=== PATIENT | male | born 1960 | race Caucasian/White ===

== ENCOUNTER → 2020-04-17 07:13 | Outpatient (CLI) | payer OTHER, SELFPAY ==
[2020-04-17 07:24] LABS: Microscopic, Urine URINE MICROSCOPIC (MICROSCOPIC)
[2020-04-17 08:29] LABS: Basophils % 0.5 % (0.1-2.0); Eosinophils # 0.1 K/mm3 (0.0-0.4); Eosinophils % 1.4 % (0.1-12.0); Hematocrit 48.7 % (42.0-52.0); Hemoglobin 17.4 g/dL (14.1-18.0); Lymphocytes # 1.4 K/mm3 (0.7-4.5); Lymphocytes % 21.7 % (10-50); Mean Corpuscular HGB Conc 35.8 g/dL (31.8-35.4); Mean Corpuscular Hemoglobin 34.3 pg (27.0-31.2); Mean Corpuscular Volume 95.6 fl (80-94); Mean Platelet Volume 8.2 fl (7.4-10.4); Monocytes # 0.5 K/mm3 (0.1-1.0); Monocytes % 7.5 % (1.7-9.3); Neutrophils # 4.4 K/mm3 (1.8-7.8); Platelet Count 262 K/mm3 (142-424); Red Blood Count 5.09 M/mm3 (4.60-6.20); Red Cell Distribution Width 13.2 % (11.5-17.5); White Blood Count 6.4 K/mm3 (4.8-10.8)
[2020-04-17 08:56] LABS: Appearance,Urine CLEAR (Clear); Blood, Urine Negative (Negative); Color,Urine AMBER (Yellow); Glucose,Urine (UA) Negative (Negative); Ketones,Urine Negative (Negative); Leukocyte Esterase,Urine Negative (Negative); Nitrate,Urine Negative (Negative); Protein,Urine Negative (Negative); Specific Gravity, Urine 1.025 (1.005-1.030)
[2020-04-17 09:01] LABS: Bilirubin,Urine Negative (Negative)
[2020-04-17 09:11] LABS: Bacteria,Urine Trace /lpf; Mucus,Urine Trace /lpf; Squamous Epithelial Cell,Urine Occasional #/hpf (0-5)
[2020-04-17 09:19] LABS: Chloride 102 mmol/L (98-107); Potassium 4.9 mmoL/L (3.5-5.1); Sodium 144 mmol/L (136-145)
[2020-04-17 09:21] LABS: Amylase 67 U/L (30-110); Blood Urea Nitrogen 15 mg/dl (9-20); Estimated Glomerular Filt Rate 86 ml/min (>60); GFR (African American) 105 ML/MIN (>60)
[2020-04-17 09:22] LABS: Alanine Aminotransferase 209 U/L (12-78); Albumin Level 4.5 g/dl (3.5-5.0); Albumin/Globulin Ratio 1.2 (1.1-1.8); Alkaline Phosphatase 71 U/L (38-126); Anion Gap 16.9 mEq/L (5-15); Aspartate Amino Transferase 138 U/L (17-59); Bilirubin,Total 0.9 mg/dl (0.2-1.3); Calcium 10.2 mg/dl (8.4-10.2); Carbon Dioxide 30 mmol/L (22.0-30.0); Globulin 3.8 g/dL (1.3-3.2); Glucose 118 mg/dl (74-100); Lipase 219 U/L (23-300); Total Protein,Serum 8.3 g/dl (6.3-8.2)
[2020-04-17 13:08] LABS: Gamma Glutamyl Transpeptidase 161 U/L (15-73)
[2020-04-17 14:46] LABS: Hemoglobin A1C 5.4 % (4.0-6.0)
[2020-04-18 12:03] LABS: Hep A Ab, IgM Negative (Negative); Hepatitis B Core Antibody IgM Negative (Negative); Hepatitis B Surface Antigen Negative (Negative)
[2020-04-18 16:46] LABS: Hepatitis C Antibody >11.0 s/co ratio (0.0-0.9)
== END ==
LOC: LAB 07:15
PROVIDERS: Visit Provider Family Medicine
DX: R10.9 Unspecified abdominal pain (principal); K85.90 Acute pancreatitis without necrosis or infection, unspecified; B19.20 Unspecified viral hepatitis C without hepatic coma
CPT/HCPCS: 36415; 80053; 80074; 81001; 82150; 82977; 83036; 83690; 85025

== ENCOUNTER → 2020-04-21 16:04 | Outpatient (CLI) | payer OTHER, SELFPAY ==
[2020-04-21 17:47] LABS: Alanine Aminotransferase 153 U/L (12-78); Albumin Level 4.1 g/dl (3.5-5.0); Alkaline Phosphatase 59 U/L (38-126); Aspartate Amino Transferase 86 U/L (17-59); Bilirubin,Direct 0.1 mg/dl (0.0-0.4); Bilirubin,Indirect 0.6 mg/dL (0.0-0.9); Bilirubin,Total 0.7 mg/dl (0.2-1.3); Bilirubin,Unconjugated 0.6 mg/dL (0.0-1.1); Total Protein,Serum 7.4 g/dl (6.3-8.2)
== END ==
LOC: LAB 16:04
PROVIDERS: Visit Provider Family Medicine
DX: B19.20 Unspecified viral hepatitis C without hepatic coma (principal)
CPT/HCPCS: 36415; 80076

== ENCOUNTER 2023-03-14 09:22 | Emergency (ER) | payer OTHER, SELFPAY ==
--- NOTE | 2023-03-14 09:32 | XR_ITS ---
FINAL REPORT CLINICAL HISTORY: PAIN COMPARISON: None FINDINGS: RIGHT KNEE: There is sclerosis in the medullary space of the distal femur consistent with a prior intramedullary gladys, as well as hardware defects in the distal femoral metaphysis. There is no acute fracture or dislocation. The joint spaces are intact. There is a small amount of bony density seen best on the lateral film posterior to the femoral diaphysis that has an appearance most compatible with a small focus of heterotopic bone. IMPRESSION: No acute fracture Changes of sclerosis in the distal femur compatible with IM gladys and orthopedic hardware removal. 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 Reviewed, Interpreted and Dictated by Terry Felder MD Transcribed by Meredith Cho Authenticated and [facility]
[2023-03-14 09:50] VITALS: BP 136/88; PULSE 58; RESP 20; TEMP 36.3; O2SAT 98; BMI 34.8
--- NOTE | 2023-03-14 10:44 | EXP.UTC ---
Discharge Plan Disposition Patient Disposition: Home, Self-Care Condition: Good Prescriptions Prescriptions: New clindamycin HCl 300 mg capsule 300 mg PO Q6H Qty: 40 0RF mupirocin 2 % ointment 1 applic topical TID 10 Days Qty: 22 0RF Rx Instructions: apply to wound on knee No Action gabapentin 400 mg capsule 400 mg PO BID Patient Comments: TAKE 1 CAPSULE BY MOUTH TWICE DAILY NEEDED FOR CHRONIC PAIN SYNDROME SECONDARY TO LOW BACK PAIN amlodipine 5 mg tablet 5 mg PO DAILY lisinopril 40 mg tablet 40 mg PO DAILY Referrals Follow up/Referrals: Provider,Referral, MD [Primary Care Provider] - See instructions Activity Restrictions/Add. Instructions Additional Instructions/Restrictions: *Start antibiotic(s) immediately and be sure to take as ordered for the FULL length of time although you may be feeling better or start to see improvement in the next 24-48 hours *Monitor closely. Outlined redness so that you can monitor easier. Follow up immediately for new or worsening symptoms including but not limited to redness, swelling, streaking from site fever or chills. *Warm compress 15 minutes 3-4 times day *Never squeeze or pop these on your own. Seek immediate medical attention next time this occurs *Monitor Temp. Tylenol every 4 hours as needed and ibuprofen every 6 hours as needed (as long as your primary care doctor has told you that it is ok to take both. For fever, aches, pain. ER if no less that 101 despite Tylenol and ibuprofen ?Follow up with your family doctor/primary care physician in the next 48-72 hours if no improvement Make sure to call for your wound culture results Clinical Impressions Clinical Impression: Cellulitis Qualifiers: Site of cellulitis: unspecified site Qualified Code(s): L03.90 - Cellulitis, unspecified Stand Alone Forms Stand Alone Forms: Work/School Release Instructions Patient Instructions: Cellulitis, Clindamycin Discharge ED Provider: Benita Love [facility] General Stated complaint: Rt leg pain, no accident Mode of Arrival: Ambulatory Source of Information: Patient Limitations: No Limitations Time Seen by Provider: 03/14/23 10:44 Description of Symptoms (Recalled from Triage Doc. by RN): PATIENT STATES THAT ON MONDAY HE GOT SOMETHING (POSSIBLE SPLINTER) IN HIS RIGHT KNEE. ON MONDAY PATIENT STATES HE REMOVED IT, AND SINCE THEN HIS KNEE HAS BECOME SWOLLEN, RED AND WARM TO TOUCH HEENT Symptoms (Recalled from RN notes): No Resp Symptoms (Recalled from RN notes): No Skin Symptoms (Recalled from RN notes): Yes MS Symptoms (Recalled from RN notes): No Functional Status (Recalled from RN notes): WNL History of Present Illness Provider Complaint: Patient states that he works at the [employer] and he is always down on his knees and he got something in his right knee States that he was able to get it out on Monday and thinks it may have been a splinter States that after that he started having a red spot on his knee that is red and swollen and sore Related Data Home Medications Medication Instructions Recorded Confirmed amlodipine 5 mg tablet 5 mg PO DAILY Hypertension 03/14/23 03/14/23 gabapentin 400 mg capsule 400 mg PO BID Pain 03/14/23 03/14/23 lisinopril 40 mg tablet 40 mg PO DAILY Hypertension 03/14/23 03/14/23 Previous Rx's Medication Instructions Recorded clindamycin HCl 300 mg capsule 300 mg PO Q6H #40 caps 03/14/23 mupirocin 2 % topical ointment 1 applic topical TID 10 days #22 03/14/23 grams Allergies Allergy/AdvReac Type Severity Reaction Status Date / Time No Known Allergies Allergy Unverified 07/04/17 14:11 Worker's Comp Is this a Worker's Comp case?: No [facility] Disclaimer: The information contained in this section may have been updated after the patient was seen, as this information can be updated by other users. Social History Smoking Status: Unknown if ever smoked alcohol intake: current
[2023-03-14 11:11] VITALS: BP 136/88; PULSE 58; RESP 20; TEMP 36.3; O2SAT 98
== END 2023-03-14 11:18 | disposition home or self-care (01) ==
PROVIDERS: Emergency Provider Nurse Practitioner
DX: L03.115 Cellulitis of right lower limb (principal); B96.89 Other specified bacterial agents as the cause of diseases classified elsewhere
CPT/HCPCS: 73562; 87070; 87077; 87186; 87205; 99204; 99212; G0463

== ENCOUNTER → 2023-04-22 13:11 | Outpatient (CLI) | payer OTHER, SELFPAY ==
[2023-04-22 14:30] LABS: Basophils % 0.7 % (0.1-2.0); Eosinophils # 0.2 K/mm3 (0.0-0.4); Eosinophils % 5.2 % (0.1-12.0); Hematocrit 47.8 % (42.0-52.0); Hemoglobin 15.4 g/dL (14.1-18.0); Lymphocytes # 1.1 K/mm3 (0.7-4.5); Lymphocytes % 23.3 % (10-50); Mean Corpuscular HGB Conc 32.3 g/dL (31.8-35.4); Mean Corpuscular Hemoglobin 31.7 pg (27.0-31.2); Mean Corpuscular Volume 98.4 fl (80-94); Mean Platelet Volume 8.5 fl (7.4-10.4); Monocytes # 0.3 K/mm3 (0.1-1.0); Monocytes % 5.7 % (1.7-9.3); Neutrophils % 65.1 % (37.0-80.0); Platelet Count 193 K/mm3 (142-424); Red Blood Count 4.86 M/mm3 (4.60-6.20); Red Cell Distribution Width 13.4 % (11.5-17.5); White Blood Count 4.6 K/mm3 (4.8-10.8)
[2023-04-22 14:43] LABS: Chloride 106 mmol/L (98-107); Potassium 4.2 mmoL/L (3.5-5.1); Sodium 138 mmol/L (136-145)
[2023-04-22 14:46] LABS: Alanine Aminotransferase 184 U/L (12-78); Albumin Level 4.1 g/dl (3.5-5.0); Alkaline Phosphatase 76 U/L (38-126); Anion Gap 12.2 mEq/L (5-15); Aspartate Amino Transferase 132 U/L (17-59); Blood Urea Nitrogen 16 mg/dl (9-20); Calcium 8.9 mg/dl (8.4-10.2); Carbon Dioxide 24 mmol/L (22.0-30.0); Estimated Glomerular Filt Rate 76 ml/min (>60); GFR (African American) 92 ML/MIN (>60); Glucose 96 mg/dl (74-100); Total Protein,Serum 8.1 g/dl (6.3-8.2)
[2023-04-27 13:58] LABS: HBsAg Screen Negative (Negative); HCV Ab Reactive (Non Reactive); Hep A Ab, IGM Negative (Negative); Hep B Core Ab, IgM Negative (Negative)
== END ==
LOC: LAB 13:15
PROVIDERS: Visit Provider Nurse Practitioner
DX: B18.2 Chronic viral hepatitis C (principal)
CPT/HCPCS: 36415; 80053; 80074; 85025

== ENCOUNTER → 2023-09-14 14:18 | Outpatient (POV) | payer OTHER, SELFPAY ==
[2023-09-14 15:29] VITALS: BP 145/94; PULSE 60; RESP 20; O2SAT 96; BMI 34.5
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
== END ==
LOC: SC.PAIN 14:19
PROVIDERS: PCP Family Medicine; Visit Provider Nurse Practitioner Family
DX: G89.4 Chronic pain syndrome (principal); M54.50 Low back pain, unspecified; M25.551 Pain in right hip; M54.16 Radiculopathy, lumbar region
CPT/HCPCS: 99202; G0463

== ENCOUNTER 2023-10-12 08:39 | Outpatient (POV) | payer OTHER, SELFPAY ==
--- NOTE | 2023-10-12 08:50 | A.OFFVIS_ITS ---
[facility] Pain Management SOAP Note Subjective:: Patient is a pleasant 63-year-old male who presents today for 1 month follow-up. Today he rates his pain at a 5 out of 10. He denies any new trauma or injury. Patient does state that he had his internal medicine doctor at send over documentation to was requesting that we prescribe opioid pain medication. He states that due to the extensive pain he is and and history of cirrhosis that that is the only thing he is interested and. At our last visit we did discuss injections or pain pump options however he states he is not interested in any of these options. He was prescribed at our last visit compounded cream however he states he has not tried this. He states he is prescribed gabapentin 400 mg twice daily from an outside provider. His Tito has been reviewed and is appropriate. Review of Systems: General: No recent weight changes, no fever, no sleep disturbances Respiratory: No cough, no shortness of air, no recurring pulmonary infections Cardiovascular/peripheral vascular: No chest pain, no palpitations, no edema, no shortness of breath Gastrointestinal: No new onset incontinence, normal bowel movements reported Genitourinary: No new onset incontinence Musculoskeletal: Low back pain Psychiatric: [Normal mood/affect] Neurological: [Denies weakness in extremities], [denies balance issues] Objective:: Physical Exam: General: Alert and oriented x3, no acute distress, pleasant and cooperative Lungs: Respirations even and unlabored, symmetrical chest expansion Eyes: PERRL Musculoskeletal: Flexion and extension of lumbar [spine] somewhat guarded secondary to pain Neurological: Speech clear, no gross sensory deficit Assessment:: Low back pain with lumbar radiculopathy symptoms, right hip pain, chronic pain syndrome Plan:: I have counseled the patient that we do not have any records that were sent over from regarding his care. I have counseled the patient that I did speak Dr. Mckeon regarding his last visit and at that time we were not doing any opioid pain medications. I have counseled the patient that where he is still a new patient and that we are more interventional as to other pain management facilities. I have also explained to the patient that we have no imaging records or records of any surgical procedures that he has done. Patient was counseled that there is a lot more red tape involving prescribing opioid pain medications and unfortunately we are limited. Patient acknowledged understanding but was upset. I did speak with the patient regarding still being able to offer other options such as the injections or other treatment plans. Patient is not interested in this. We did leave the visit as he can call if he needs additional follow-ups however I do understand if he wants to reach out to other pain management facilities for his opioid needs. Patient has been instructed to contact the clinic with any concerns before the next appointment. Dr. Mckeon has reviewed this note and agrees with this plan of care. This note was dictated using voice recognition software and make contain errors or omissions. [facility] Disclaimer: The information contained in this section may have been updated after the patient was seen, as this information can be updated by other users. Medical History (Updated 09/14/23 @ 15:53 by Xiao Summers APRN) Back pain with history of spinal surgery HLD (hyperlipidemia) HTN (hypertension) Chronic pain syndrome Alcohol abuse Chronic hepatitis C Surgical History (Updated 09/14/23 @ 14:36 by Traci Villegas RN) History of hip surgery H/O knee surgery Hx of colonoscopy Family History (Updated 09/14/23 @ 14:50 by Traci Villegas RN) Other Alzheimer disease Diabetes Nephrolithiasis Social History (Updated 09/14/23 @ 14:51 by Traci Villegas RN) Smoking Status: Unknown if ever smoked alcohol intake: former current occupational status: employed Travel in the last 8 weeks: None household members: spouse
[2023-10-12 08:55] VITALS: BP 159/87; PULSE 61; RESP 18; O2SAT 97; BMI 33.9
== END 2023-10-12 23:59 ==
LOC: SC.PAIN 08:40
PROVIDERS: Visit Provider Nurse Practitioner Family
DX: M51.16 Intervertebral disc disorders with radiculopathy, lumbar region (principal); M25.551 Pain in right hip; G89.4 Chronic pain syndrome
CPT/HCPCS: 99212; G0463

== ENCOUNTER 2024-10-25 07:15 | Outpatient (CLI) | payer OTHER, SELFPAY ==
--- OUTSIDE RECORDS SUMMARY | 2024-10-25 07:18 | XMS_ITS | Data Portability ---
Author Organization [place] - [facility] [place] Address [address] [place] [address] Care Team Providers Care Engraver Signature Name Role Phone SHABBIR QUEZADA Primary Care Provider [phone] RUBY HARRIS Agricultural Produce Packer [phone] Assessment No assessment recorded. Plan of Treatment Reminders Order Date Submit Date Provider Last Modified By Organization Details Last Modified Time Details Appointments None recorded. Lab hepatitis C liver status biomarker panel, serum 2022 023 [email or web address] 4 [facility], [address], [place], [address], 3 09:16:34 hepatitis C virus RNA, quant, PCR, serum or plasma 2022 023 [email or web address] 4 [facility], [address], [place], [address], 3 09:16:34 HIV 1 + 2 RNA panel, APPI+probe, serum or plasma 2022 023 4 [facility], [address], [place], [address], 3 09:16:34 PT/INR 2022 023 [email or web address] 4 [facility] (Laboratory), [address] [place] [address] [place], [address], 3 09:16:34 CBC w/ auto diff 2022 023 [email or web address] 2 [facility] (Lab Registration) , [address] [place] [address] [place], [address], 3 09:03:04 CMP, serum or plasma 2022 023 [email or web address] 2 [facility] (Lab Registration) , [address] [place] [address] [place], [address], 3 09:03:05 hepatitis panel (A+B+C), acute, serum 2022 023 [email or web address] 2 [facility] (Lab Registration) , [address] [place] [address] [place], [address], 3 09:03:05 HIV (1+2) Ab screen, serum 2022 023 [email or web address] 2 [facility], [address] [place] [address] [place], [address], 3 09:03:05 [facility]INR 2022 [email or web address], [address] [place] [address] [place], [address], 3 09:03:05 hepatitis C liver status biomarker panel, serum 2022 023 [email or web address] 2 [facility], [address], [place], [address], 3 09:03:05 hepatitis C virus RNA, quant, PCR, serum or plasma 2022 023 [email or web address] 2 [facility], [address], [place], [address], 3 09:03:05 Referral None recorded. Procedures colonoscopy procedure (PROC) 2022 023 [email or web address] 4 [facility], [address] [place] [address] [address], [place], [address], 3 09:16:46 upper endoscopy procedure (EGD) (PROC) 2022 023 [email or web address] [address] [facility], [place], [address], 3 12:46:52 Surgeries None recorded. Imaging None recorded. Medication Orders None recorded. Patient TargetsNo targets recorded. Patient InstructionsNo instructions recorded. Reason for Referral None Reported. Results Created Date Observation Date Name Description Value Unit Range Abnormal Flag Note LastModifiedBy Organization Detail LastModifiedTime 01/12/2012/13/2022 imagi ng/gwendolyn agnos tic resul t No observ ation record ed. [email or web address] [address], [place], [address], 01/11/2023 15:21:17 Result Notes None recorded. Problems Name Problem SNOMED Code Status Onset Date Resolution Date Notes Provider Name and Address Organization Details Recorded Time Hypertensive disorder 85221694 Active 2022 Heather mckinley, [place] - [facility] - [place] & [place] 3 13:56:25 Chronic hepatitis C 772113965 Active 2022 Heather mckinley [place] - [facility] - [place] & [place] 3 13:56:55 Erectile dysfunction 554786462 Active 2022 Heather [place]ck[place], [place] - [facility] - [facility] & [place] 3 13:57:10 History of alcoholism 857778055 Active 2022 Heather mckinley [place] - [facility] & [place] 3 13:57:20 Cirrhosis of liver 80683220 Active 2022 Ruby Harris NP [address], [address], [place], [address], [place] - [facility] - [place] & [place] 3 22:42:04 Problem Notes None recorded. Procedures Surgical History Date Name Laterality Status Provider Name and Address Organization Details Recorded Time Back Surgery completed Heather MENDOZA [facility] & [place] 01/11/2023 14:07:44 total replacement of hip completed Heather MENDOZA [facility] & [place] 01/11/2023 14:07:50 Colonoscopy completed Heather MENDOZA [facility] & [place] 01/11/2023 14:07:57 extraction of wisdom tooth completed Heather DE LA CRUZ REJI [facility] & [place] 01/11/2023 14:08:09 Imaging Results Imaging Date Name Status LastModified by Organiz ation Details LastModified Time 12/13/2022 imaging/diag nostic result completed [email or web address] [address], [place], [address], 01/11/2023 15:21:17 Procedure Notes None recorded. Medical Equipment None Reported. Allergies No known drug allergies Medications Name Sig Start Date Stop Date Status Note LastModified by Organization Details LastModified Time clindamycin HCl 300 mg capsule TAKE 1 CAPSULE BY MOUTH EVERY 6 HOURS FOR 10 DAYS 04/26 completed Not Available Not Available Not Available ibuprofen 800 mg tablet TAKE 1 TABLET BY MOUTH TWICE DAILY active Not Available Not Available No t Available gabapentin 400 mg capsule TAKE 1 CAPSULE BY MOUTH TWICE DAILY NEEDED FOR CHRONIC PAIN SYNDROME SECONDARY TO LOW BACK PAIN active Not Available Not Available No t Available amlodipine 5 mg tablet TAKE 1 TABLET BY MOUTH DAILY active Not Available Not Available No t Available hydrochloro thiazide 12.5 mg capsule TAKE 1 CAPSULE BY MOUTH ONCE DAILY FOR BLOOD PRESSURE. TAKE GOOD SOURCE OF POTASSIUM DAILY WITH THIS active Not Available Not Available No t Available mupirocin 2 % topical ointment APPLY TOPICALLY TO WOUND ON KNEE THREE TIMES DAILY FOR 10 DAYS 04/26 completed Not Available Not Available Not Available lisinopril 40 mg tablet TAKE 1 TABLET BY MOUTH DAILY active Not Available Not Available No t Available ondansetron 4 mg disintegrat ing tablet DISSOLVE 1 TABLET ON THE TONGUE EVERY 8 HOURS NEEDED FOR NAUSEA OR VOMITING active Not Available Not Available No t Available Vitals Date Recorded Body height Body mass index (BMI) Body weight Body temperature Oxygen saturation Oxygen saturation in Arterial blood by Pulse oximetry Heart rate Provider Name and Address Organization Details Last Updated DateTime 3 167.64 cm 34.1 kg/m2 93225.9 9 g 98.1 [degF] 98 % 98 % 86 /min Heather DE LA CRUZ [facility] & [place] 3 14:06:51 Date Recorded Body height Body mass index (BMI) Body weight Body temperature Oxygen saturation Oxygen saturation in Arterial blood by Pulse oximetry Heart rate Provider Name and Address Organization Details Last Updated DateTime 3 167.64 cm 33.6 kg/m2 67560.2 1 g 97.7 [degF] 98 % 98 % 86 /min [facility] [place] 3 09:09:08 Date Recorded Body height Provider Name an d Address Organization Details Last Updated DateTime 05/03/2023 167.64 cm Xiao DE LA CRUZ [facility] & [place] 05/03/2023 09:00:07 Date Recorded Body mass index (BMI) Body weight Body temperature Oxygen saturation Oxygen saturation in Arterial blood by Pulse oximetry Heart rate Systolic blood pressure Diastolic blood pressure Provider Name and Address Organization Details Last Updated DateTime 3 33.7 kg/m2 95313.8 1 g 97.2 [degF] 95 % 95 % 60 /min 152 mm[Hg] 90 mm[Hg] Angie DE LA CRUZ [facility] & [place] 3 09:13:29 Social History Question Answer Notes LastModified by Organizat ion Details LastModified Time Tobacco Smoking Status Never Smoker Heather mckinley DOROTHY Luciano [facility] & [place] 01/11/2023 13:56:18 What Is Your Level Of Caffeine Consumption? Moderate [email or web address] Information not available 01/11/2023 Do You Use Any Illicit Or Recreational Drugs? No Information not available 01/11/2023 Sex: Unknown Functional Status None recorded. Mental Status None recorded. Family History Relationship Description Onset Age of this Age Resolved Age Notes LastModified by Organization Details LastModified Time Father No current problems or disability [email or web address] Not available 12/16 14:08:20 Mother No current problems or disability [email or web address] Not available 12/16 14:08:20 Medical History Condition Response Hepatitis Y Cirrhosis Y Hypertension Y Past Encounters Encounter ID Performer Location Encounter Start Date Encounter Closed Date Diagnosis/Indication Diagnosis SNOMED-CT Code Diagnosis ICD10 Code Diagnosis Note [id number] Ruby Harris NP [facility] [address] [address] 01/11/2023 13:36:25 01/12/2023 08:31:07 Chronic hepatitis C 543360173 B18.2 Positive HCV AB from 04/2020. Treatment naive. Plan for comprehens oscar labs above to determine genotype, viral load, and fibrosis score. Liver ultrasound reviewed 12/13/2022 from [facility] noted cirrhosis with enlargemen t of the spleen. Plan to follow up in 4 weeks to discuss results and formulate treatment plan. Cirrhosis of liver 007 K74.60 No signs of decompensa tion at this time. Liver ultrasound reviewed 12/13/2022 noted cirrhosis with splenomega ly. Likely secondary to chronic HCV and use of alcohol. I have recommende d complete cessation of ETOH, currently averages 3 beers per night. Plan for comprehens oscar labs above for HCV treatment. Recommend EGD to be scheduled at clinic follow up to evaluate for esophageal varices, PHG, and GAVE. [id number] Ruby Harris NP [facility] [address] [place] [phone] 05/03/2023 08:59:31 05/03/2023 13:18:27 Chronic hepatitis C 398390474 B18.2 Positive HCV AB from 04/2020. Treatment naive. Labs completed 04/22/23 with HCV PCR 2,750,000. He will need to complete additional labs prior to treatment. Plan to treat with Epclusa 12 weeks or Mavyret 8 weeks based on results. Liver ultrasound reviewed 12/13/2022 from [facility] noted cirrhosis with enlargemen t of the spleen. Cirrhosis of liver 007 K74.60 No signs of decompensa tion at this time. Liver ultrasound reviewed 12/13/2022 noted cirrhosis with splenomega ly. Likely secondary to chronic HCV and use of alcohol. I have again recommende d complete cessation of ETOH, currently averages 2-3 beers per night. Plan for HCV treatment as above. Recommend liver US and AFP to screen for HCC every 6 months. Recommend EGD to evaluate for esophageal varices, PHG, and GAVE. Screening for malignant neoplasm of colon 133075642 Z12.11 Recommend screening colonoscop y to rule out underlying polyps, lesions. Last colonoscop y reported as normal 12 years ago. Health Concerns Section Related Observation LastModified by Organization Detai ls LastModified Time None Recorded Concern Status LastModified by Organization Details LastModified Time None Recorded Advance Directives Directive None Recorded Payers Encounter Date Sequence Insurance Name Policy Number Policy Bruno Covered Member ID Bruno Member ID Guarantor Name 01/11/2023 1 [employer] - CHOICE (POS II) [id number] Alf Jean [id number] Alf Pena 05/03/2023 1 [employer] - CHOICE (POS II) [id number] Alfmalena Pena [id number] Alf Pena Notes Date Note Type Note Provider Name and Address Organization Details Recorded Time 01/11/2023 text/html Patient presents to clinic today for evaluation of hepatitis C. Initially diagnosed with positive HCV AB on routine labs 04/2020. Treatment naive. Remote history of intranasal drug abuse and home tattoo. No IV drugs or incarceration. He does drink beer, averages 3 per day at this time. No abdominal pain or jaundice. Recent liver US from 12/13/22 noted cirrhosis and splenomegaly. His main complaint today is fatigue. Ruby Harris NP [address] [facility], [address], [address], [facility] - [place] & [place] 01/11/2023 22:45:12 05/03/2023 text/html Patient presents today for follow up on hepatitis C. Labs completed at [facility] 04/22/2023 confirmed HCV PCR 2,750,000. HCV genotype and HCV fibrosure was not completed. Treatment naive. Initially diagnosed with positive HCV AB on routine labs 04/2020. Remote history of intranasal drug abuse and home tattoo. He continues to drink beer averages 2-3 per day however does report drinking heavily in the past. Liver US 12/13/22 noted cirrhosis and splenomegaly. No abdominal pain or jaundice. Last colonoscopy 12 years ago which he reports as normal. Ruby Harris NP [address], [address], [place], [address], [place] - [facility] - [place] & [place] 05/03/2023 12:55:51
--- NOTE | 2024-10-25 07:22 | US_ITS ---
FINAL REPORT CLINICAL HISTORY: hep c COMPARISON: None FINDINGS: HEPATIC ULTRASOUND Multiple transverse and longitudinal scans were performed of the right upper quadrant of the abdomen. FINDINGS: There is increased echogenicity of the hepatic parenchyma which may be seen with fatty change or chronic liver disease. There are no changes of cirrhosis at this time. Liver is normal in size. No focal lesion is present. No intrahepatic duct dilatation is identified. No evidence of common bile duct dilatation is identified. Doppler exam shows normal directional flow within patent hepatic and portal veins. The gallbladder is partially contracted without definite stone disease. No evidence of perihepatic fluid is identified. IMPRESSION: Hyperechoic liver may be related to patient's reported hepatitis or fatty change. No mass or changes of portal hypertension. Reviewed, Interpreted and Dictated by Jack Alcaraz MD Transcribed by Mae Fuller Authenticated and [facility]
== END 2024-10-25 23:59 | disposition home or self-care (01) ==
PROVIDERS: PCP Nurse Practitioner; Visit Provider Student in an Organized Health Care Education/Training Program
DX: K74.00 Hepatic fibrosis, unspecified (principal); B18.2 Chronic viral hepatitis C
CPT/HCPCS: 76705

== ENCOUNTER 2025-04-27 14:01 | Emergency (ER) | payer SELFPAY ==
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
[2025-04-27] VITALS (15 sets, daily range): BP systolic 148–191; BP diastolic 84–113; PULSE 56–67; RESP 11–18; TEMP 36.7–36.8; O2SAT 97–100; BMI 30.7
--- OUTSIDE RECORDS SUMMARY | 2025-04-27 14:35 | XMS_ITS | Encounter Summary ---
Author Organization [facility] Address [address] [place] [id number] Care Team Providers Care Time Study Clerk Name Role Phone Rebekah Guzman APRN Primary Care Provider [phone] Encounter Details Date Type Department Care Team (Latest Contact Info) Description 03/21/2025 Travel Social History Tobacco Use Types Packs/Day Years [...] on file documented as of this encounter Functional Status documented as of this encounter Plan of Treatment Upcoming Encounters Date Type Department Care Team (Late st Contact Info) Description 06/20/2025 4:00 PM EST Office Visit [facility] [address] [place] [address] [place] [address] Rebekah Guzman APRN [address] [place] [address] documented as of this encounter Visit Diagnoses Not on filedocumented in this encounter Care Teams Time Study Clerk Relationship Specialty Start Date End Date Rebekah Guzman APRN [address] [place] [id number] PCP - General Family Medicine 06/08/22 documented as of this encounter
--- OUTSIDE RECORDS SUMMARY | 2025-04-27 14:35 | XMS_ITS | Clinical Summary ---
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 Tobacco Cessation:Counseling Given: Not Answered Alcohol Use Standard Drinks/Week Comments Yes 0 [...] on file Sexual Orientation Not on file Last Filed Vital Signs Vital Sign Reading [...] Mass Index 31.15 03/21/2025 3:34 PM EDT Plan of Treatment Upcoming Encounters Date Type Department Care Team (Late st Contact Info) Description 06/20/2025 4:00 PM EST Office Visit [facility] [address] [place] [address] DR [place] D[place]OTHY [phone] Rebekah Guzman APRN [address] [place] [address] Health Maintenance Due Date Last Done Comments COLOGUARD 2006 COLON CANCER SCREENING 5 YEA R SIGMOIDOSCOPY 2006 COLONOSCOPY [address] CANCER SCREENING 2006 CT COLONOGRAPHY 2006 FECAL OCCULT BLOOD TEST 2006 FIT Testing (1 year) 2006 Hepatitis B (1 of 3 - Risk 3 -dose series) 2021 ZOSTER VACCINE (3 of 3) 01/09/2024 11/14/2023, 04/16 INFLUENZA VACCINE 02/14/2025 05/09/2024, , 06/27/2022, Additional history exists ANNUAL PHYSICAL 09/27/2025 09/27/2024, 10/26/2022 TDAP/TD VACCINES (3 - Td or Tdap) 04/11/2026 016, 09/19/1996 Pneumococcal Vaccine 50+ Completed 11/14/2023, 07/2016 HEPATITIS C SCREENING Completed 03/21/2025 , 02/06/2025, 09/27/2024, Additional history exists Insurance AETNA AETNA VELEZHER MARCOS Care Teams Farm Supervisor Relationship Specialty Start Date End Date Rebekah Guzman APRN [address] [place] [address] PCP - General Family Medicine 06/08/22
--- OUTSIDE RECORDS SUMMARY | 2025-04-27 14:35 | XMS_ITS | Encounter Summary ---
[facility] Address [address] [place] [id number] Care Team Providers Care Wireless Telegrapher Name Role Phone Rebekah Guzman RIG BUILDER HELPER Primary Care Provider +1 [phone] Reason for Visit * Reason Onset Date Comments Med Refill 03/19/2025 Encounter Details Date Type Department Care Team (Late st Contact Info) Description 03/19/2025 Refill [facility] PRIMARY [facility]ARE [address] [place] [phone] Rebekah Guzman, RIG BUILDER HELPER [address] [place], [place] [phone] Chronic pain syndrome Social History Tobacco Use [...] Date Recorded Patient Health Questionnaire-2 Score 0 09/27/2024 Sex and Gender Information Value Date Recorded Sex Assigned at Not on file Legal Sex Male 10:56 AM EDT Gender Identity Not on file Sexual Orientation Not on file documented as of this encounter Miscellaneous Notes * Telephone Encounter - Alli Pollock RegSched Rep - 03/19/2025 10:22 AM EDT Caller: Alf Pena Relationship: Self Best call back number: [phone] Requested Prescriptions: Requested Prescriptions Pending Prescriptions Disp Refills traMADol (ULTRAM) 50 MG tablet 60 tablet 0 Sig: Take 1 tablet by mouth 2 (Two) Times a Day. Pharmacy where request should be sent: [id number] - [place], [place] - [address] - [phone] [facility] [phone] FX Last office visit with prescribing clinician: 12/18/2024 Last telemedicine visit with prescribing clinician: Visit date not found Next office visit with prescribing clinician: 03/21/2025 Additional details provided by patient: PT IS OUT OF MEDICATION. Does the patient have less than a 3 day supply: [x] Yes [] No Would you like a call back once the refill request has been completed: [] Yes [x] No If the office needs to give you a call back, can they leave a voicemail: [] Yes [x] No Greg Castillo Rep 03/19/25 10:23 EDT documented in this encounter Plan of Treatment Upcoming Encounters Date Type Department Care Team (Late st Contact Info) Description 06/20/2025 4:00 PM EST Office Visit [facility] [address] [place] [phone] Rebekah Guzman APRN [address] [place] [address] documented as of this encounter Visit Diagnoses Diagnosis Chronic pain syndrome documented in this encounter Care Teams Wireless Telegrapher Relationship Specialty Start Date End Date Rebekah Guzman APRN [address] [place] [address] PCP - General Family Medicine 06/08/22 documented as of this encounter
--- OUTSIDE RECORDS SUMMARY | 2025-04-27 14:35 | XMS_ITS | Encounter Summary ---
[facility] Organization [facility] Address [address] [place] [phone] Care Team Providers Care Toe Puncher Name Role Phone Rebekah Guzman BOOK TRIMMER Primary Care Provider [phone] Reason for Visit * Reason Comments Med Refill Encounter Details Date Type Department Care Team (Late st Contact Info) Description 04/01/2025 Refill [facility] PRIMARY [facility] [address] [place] [phone] Rebekah Guzman, BOOK TRIMMER [address] [place], [place] [phone] Chronic pain syndrome Social History Tobacco Use [...] encounter Miscellaneous Notes * Telephone Encounter - Radha Snyder - 04/01/2025 2:47 PM EDT Last seen on 03/21/2025. Follow up scheduled for 06/20/2025. TF documented in this encounter Plan of Treatment Upcoming Encounters Date Type Department Care Team (Late st Contact Info) Description 06/20/2025 4:00 PM EST Office Visit [facility] [address] [place] [phone] Rebekah Guzman APRN [address] [place] [address] documented as of this encounter Visit Diagnoses Diagnosis Chronic pain syndrome documented in this encounter Care Teams Toe Puncher Relationship Specialty Start Date End Date Rebekah Guzman, CHARLEY [address] [place] [address] PCP - General Family Medicine 06/08/22 documented as of this encounter
--- OUTSIDE RECORDS SUMMARY | 2025-04-27 14:35 | XMS_ITS | Encounter Summary ---
Author Organization [facility] Address [address] [place] [address] Care Team Providers Care Therapist Physical Name Role Phone Rebekah Guzman APRN Primary Care Provider Encounter Details Date Type Department Care Team (Late st Contact Info) Description 03/21/[address] [facility] Medicine Specialties [address] [facility] [place] [address] Delgado Grossman MD [address] [facility] [address] [place] [address] Social History Tobacco Use Types Packs/Day Years Used Date Smoking Tobacco: Never Passive Smoke Exposure: Past Smokeless Tobacco: Never Alcohol Use Standard Drinks/Week Comments Not Currently 0 (1 standard drink = 0.6 oz pur e alcohol) PHQ-2 Answer Date Recorded Patient Health Questionnaire-2 Score 0 09/26/2024 Sex and Gender Information Value Date Recorded Sex Assigned at Not on file Legal Sex Male 8:34 PM EDT Gender Identity Not on file Sexual Orientation Not on file documented as of this encounter Plan of Treatment Upcoming Encounters Date Type Department Care Team (Late Contact Info) Description 09/25/2025 1:30 PM EDT Ancillary Procedure [facility] Medicine Specialties [address] [facility] [place] [address] 09/25/2025 2:40 PM EDT Office Visit [facility] [place] [address] [facility] [place] [address] Delgado Grossman MD [address] [place] [phone] documented as of this encounter Visit Diagnoses Not on filedocumented in this encounter Additional Health Concerns Assessment Noted Time A fall risk assessment has been complete d for the patient 09/26/2024 8:26 AM EDT A Body Mass Index follow-up plan has been documented for the patient 02/06/2025 1:29 PM EDT documented as of this encounter Care Teams Therapist Physical Relationship Specialty Start Date End Date Rebekah Guzman APRN [address] [place] [address] PCP - General 08/02/23 documented as of this encounter
--- OUTSIDE RECORDS SUMMARY | 2025-04-27 14:35 | XMS_ITS | Data Portability ---
Author Organization [place] [facility] Address [address] [place] [address] Care Team Providers Care Cake Washer Name Role Phone DAMIEN, SHABBIR Primary Care Provider RUBY MILLAN Slubber Machine Operator [phone] Assessment No assessment recorded. Plan of Treatment Reminders Order Date Submit Date Provider Last Modified By Organization Details Last Modified Time Details Appointments None recorded. Lab hepatitis C liver status biomarker panel, serum 2022 023 [email or web address] 4 [facility], [address], [place], [address], 3 09:16:34 hepatitis C virus RNA, quant, PCR, serum or plasma 2022 023 [email or web address] 4 [facility], [address], [place], [address], 3 09:16:34 HIV 1 + 2 RNA panel, PAPI+probe, serum or plasma 2022 023 [email or web address] 4 [facility], [address], [place], [address], 3 09:16:34 PT/INR 2022 023 [email or web address] 4 [facility] [address] [place] [address] [place], [address], 3 09:16:34 CBC w/ auto diff 2022 023 [email or web address] 2 [facility] (Lab Registration) , [address] [place] [address] [place], [address], 3 09:03:04 CMP, serum or plasma 2022 023 [email or web address] 2 [facility] (Lab Registration) , [address] [place] [address] [place], [address], 3 09:03:05 hepatitis panel (A+B+C), acute, serum 2022 023 [email or web address] 2 [facility] (Lab Registration) , [address] [place] [address] [place], [address], 3 09:03:05 HIV (1+2) Ab screen, serum 2022 023 [email or web address] 2 [facility] (Add On Labs Only), [address] [place] [address] [place], [address], 3 09:03:05 PT/INR 2022 023 [email or web address] 2 [facility] (Add On Labs Only), [address] [place] [address] [place], [address], 3 09:03:05 hepatitis C liver status biomarker panel, serum 2022 023 [email or web address] 2 [facility], [address], [place], [address], 3 09:03:05 hepatitis C virus RNA, quant, PCR, serum or plasma 2022 023 [email or web address] 2 [facility], [address], [place], [address], 3 09:03:05 Referral None recorded. Procedures colonoscopy procedure (PROC) 2022 023 [email or web address] 4 [facility] Lir[facility] [address] [place] [address] [address] [place], [address], 3 09:16:46 upper endoscopy procedure (EGD) (PROC) 2022 023 [email or web address] 4 [facility] Lir[facility] [address] [place] [address] [address], [place], [address], 3 12:46:52 Surgeries None recorded. Imaging None recorded. Medication Orders None recorded. Patient TargetsNo targets recorded. Patient InstructionsNo instructions recorded. Reason for Referral None Reported. Results Created Date Observation Date Name Description Value Unit Range Abnormal Flag Note LastModifiedBy Organization Detail LastModifiedTime 01/12/2012/13/2022 imagi ng/di agnos tic resul t No observ ation record ed. [email or web address] [address], [place], [address], 01/11/2023 15:21:17 Result Notes None recorded. Problems Name Problem SNOMED Code Status Onset Date Resolution Date Notes Provider Name and Address Organization Details Recorded Time Hypertensive disorder 15479853 Active 2022 Heather [place]ckin[place], [place] - [facility] [place] & [place] 3 13:56:25 Chronic hepatitis C 977213088 Active 2022 Heather mck[place], [place] - [facility] [place] & [place] 3 13:56:55 Erectile dysfunction 716903987 Active 2022 Heather [place], [place] - [facility] 3 13:57:10 History of alcoholism 148545406 Active 2022 Heather mckinley, [place] - [facility] - [place] & [place] 3 13:57:20 Cirrhosis of liver 65814937 Active 2022 Ruby Millan NP [address], [address], [place], [address] [place] - [facility] - [place] & [place] 3 22:42:04 Problem Notes None recorded. Procedures Surgical History Date Name Laterality Status Provider Name and Address Organization Details Recorded Time Back Surgery completed Heather MENDOZA [facility] & [place] 01/11/2023 14:07:44 total replacement of hip completed Heathermaria c MENDOZA [facility] & [place] 01/11/2023 14:07:50 Colonoscopy completed [facility] DOROTHY MENDOZA [facility] & [place] 01/11/2023 14:07:57 extraction of wisdom tooth completed Heather Love MENDOZA [facility] & [place] 01/11/2023 14:08:09 Imaging Results None recorded. Procedure Notes None recorded. Medical Equipment None [...] Updated DateTime 3 167.64 cm 34.1 kg/m2 52310.9 9 g 98.1 [degF] 98 % 98 % 86 /min Heather MENDOZA [facility] & [place] 3 14:06:51 Date Recorded Body height Body mass index (BMI) Body weight Body temperature Oxygen saturation Oxygen saturation in Arterial blood by Pulse oximetry Heart rate Provider Name and Address Organization Details Last Updated DateTime 3 167.64 cm 33.6 kg/m2 51826.2 1 g 97.7 [degF] 98 % 98 % 86 /min Heather MENDOZA [facility] & [place] 3 09:09:08 Date Recorded Body height Provider Name an d Address Organization Details Last Updated DateTime 05/03/2023 167.64 cm Xiao MENDOZA [facility] & [place] 05/03/2023 09:00:07 Date Recorded Body mass index (BMI) Body weight Body temperature Oxygen saturation Oxygen saturation in Arterial blood by Pulse oximetry Heart rate Systolic And Diastolic Provider Name and Address Organization Details Last Updated DateTime 3 33.7 kg/m2 48690.8 1 g 97.2 [degF] 95 % 95 % 60 /min 152/90 mm[Hg] [facility] [place] 3 09:13:29 Social History Question Answer Notes LastModified by [employer] Details LastModified Time Tobacco Smoking Status Never Smoker Heather mckinley DOROTHY MENDOZA [facility] & [place] 01/11/2023 13:56:18 What Is Your Level Of Caffeine Consumption? Moderate [email or web address] Information not available 01/11/2023 Sex: Unknown Functional Status Question Answer Note LastModified by [employer] Details LastModified Time Do you use any illicit or recreational drugs? No Information not available 01/11/2023 Mental Status None recorded. Family History Relationship Description Onset Age of this Age Resolved Age Notes LastModified by Organization Details LastModified Time Father No current problems or disability [email or web address] Not available 12/16 14:08:20 Mother No current problems or disability Not available 12/16 14:08:20 Medical History Condition Response Hepatitis Y Cirrhosis Y Hypertension Y Past Encounters Encounter ID Performer Location Encounter Start Date Encounter Closed Date Diagnosis/Indication Diagnosis SNOMED-CT Code Diagnosis ICD10 Code Diagnosis IMO Codes Diagnosis Note [id number] Ruby Millan NP [facility] [address] [address] 01/11/2023 13:36:25 01/12/2023 08:31:07 Chronic hepatitis C 126998269 B18.2 Positive HCV AB from 04/2020. Treatment naive. Plan for comprehens oscar labs above to determine genotype, viral load, and fibrosis score. Liver ultrasound reviewed 12/13/2022 from [facility] noted cirrhosis with enlargemen t of [...] evaluate for esophageal varices, PHG, and GAVE. [id number] Ruby Millan NP [facility] [address] [address] 05/03/2023 08:59:31 05/03/2023 13:18:27 Chronic hepatitis C 575401931 B18.2 Positive HCV AB from 04/2020. Treatment naive. Labs completed 04/22/23 with HCV PCR 2,750,000. He will need to complete additional labs prior to treatment. Plan to treat with Epclusa 12 weeks or Mavyret 8 weeks based on results. Liver ultrasound reviewed 12/13/2022 from [facility] noted cirrhosis with enlargemen t of [...] GAVE. Screening for malignant neoplasm of colon 227271692 Z12.11 Recommend screening colonoscop y to rule out underlying polyps, lesions. Last colonoscop y reported as normal 12 years ago. Health Concerns Section Related Observation LastModified by Organization Detai ls LastModified Time None Recorded Concern Status LastModified by Organization Details LastModified Time None Recorded Advance Directives Directive None Recorded Payers Insurance Date Sequence Insurance Name Policy Number Policy Bruno Covered Member ID Bruno Member ID Guarantor Name 07/02/2023 1 AETNA (POS II) [id number] Alf Pena [id number] Alf Pena 04/14/2021 1 [employer]ET[employer] [id number] Alf Pena [id number] Alf Pena 01/11/2023 1 [place] [id number] Alf Pena [id number] Alf Pena Notes Date Note Type Note [...] His main complaint today is fatigue. Ruby Millan NP [address] [facility], [address], [address], [facility] 01/11/2023 22:45:12 05/03/2023 text/html Patient presents today for follow up on hepatitis C. Labs completed at [facility] 04/22/2023 confirmed HCV PCR 2,750,000. HCV genotype [...] ago which he reports as normal. Ruby Millan NP [address] [facility], [address], [place], [address], [facility] & [place] 05/03/2023 12:55:51
--- OUTSIDE RECORDS SUMMARY | 2025-04-27 14:35 | XMS_ITS | Encounter Summary ---
[facility] Address [address] [place] [phone] Care Team Providers Care Speedometer Mechanic Name Role Phone Rebekah Guzman HIGH PRESSURE KETTLE OPERATOR Primary Care Provider [phone] Reason for Visit * Reason Comments Med Refill Encounter Details Date Type Department Care Team (Late st Contact Info) Description 06/03/2024 Refill [facility]IMARY [facility] [address] [place] [address] [place] [phone] Rebekah Guzman, HIGH PRESSURE KETTLE OPERATOR [address] [place], [place] [id number] Chronic pain syndrome Social History Tobacco Use [...] Score 0 01/09/2023 PHQ-2 Answer Date Recorded Retired PHQ-9: Brief Depression Severity Measure Score 0 08/07/2023 Sex and Gender Information Value Date Recorded Sex Assigned at Not on file Legal Sex Male 10:56 AM EDT Gender Identity Not on file Sexual Orientation Not on file documented as of this encounter Plan of Treatment Upcoming Encounters Date Type Department Care Team (Late st Contact Info) Description 06/20/2025 4:00 PM EST Office Visit [facility] [address] [place] [address] [place] [phone] Rebekah Guzman APRN [address] [place] [address] documented as of this encounter Visit Diagnoses Diagnosis Chronic pain syndrome documented in this encounter Care Teams Speedometer Mechanic Relationship Specialty Start Date End Date Rebekah Guzman APRN [address] [place] [address] PCP - General Family Medicine 06/08/22 documented as of this encounter
--- OUTSIDE RECORDS SUMMARY | 2025-04-27 14:35 | XMS_ITS | Encounter Summary ---
Author Organization [facility] Address [address] [place] [address] Care Team Providers Care Ethernet Network Architect Name Role Phone ThomasRebekah everett Ross WHITEHEAD Primary Care Provider Candi Garcia LCSW Unavailable Unavailable Reason for Visit * Reason Onset Date Comments Treatment 07/22/[address] art date 07/17/24. Labs at [facility]. Encounter Details Date Type Department Care Team (Late st Contact Info) Description 07/22/2024 Telephone [facility] [place] [address], [address] [place] [address] Delgado Grossman MD [address] [facility] [address] [place] [address] Treatment (HCV Treatment start date 07/17/24. Labs at [facility].) Social History Tobacco Use Types Packs/Day Years [...] documented as of this encounter Functional Status * Over the past 2 weeks, how often have you been bothered by any of the following problems? Question Answer Date of Assessment Author Little interest or pleasure in doing things Not at all 09/26/2024 8:26 AM EDT Tania Abraham Feeling down, depressed, or hopeless Not at all 09/26/2024 8:26 AM EDT Tania Abraham Patient Health Questionnaire -2 Score 0 09/26/2024 8:26 AM EDT Tania Abraham documented as of this encounter Miscellaneous Notes * Telephone Encounter - Monserrat Kay RN - 03/27/2025 1:57 PM EDT Rescheduled patient for September of 2025 and mailed reminders. * Telephone Encounter - Radha Ospina - 02/19/2025 2:59 PM EDT SVR12 labs complete. RNA ND. DB updated. 3 mo post tx follow up on 03/26/25 at [facility]. * Telephone Encounter - Radha Ospina - 02/04/2025 12:06 PM EDT Pt states that he will walk in [facility] sometime this week to have labs drawn. * Telephone Encounter - Radha Ospina - 01/28/2025 9:36 AM EDT Call to [facility], . No new labs. Will give Pt more time to get labs completed. Refaxed lab orders to ensure they are available. * Telephone Encounter - Max Delong - 01/24/2025 11:00 AM EDT S/w pt he has not completed lab orders but will try and get them done this weekend. Fu for results on Monday. * Telephone Encounter - Max Delong - 01/22/2025 8:36 AM EDT Refaxed request to [facility] [phone] * Telephone Encounter - Radha Ospina - 01/20/2025 9:29 AM EDT Faxed lab results request to [facility], . * Telephone Encounter - Max Delong - 01/15/2025 10:27 AM EDT S/w pt he has not completed lab orders but will go tomorrow to to complete his lab orders. * Telephone Encounter - Radha Ospina - 01/14/2025 8:38 AM EDT Faxed lab results request to [facility], . * Telephone Encounter - Radha Ospina - 01/03/2025 10:44 AM EDT Pt requested labs be faxed to [facility], . Pt will have labs drawn next week sometime. * Telephone Encounter - Max Delong - 12/31/2024 8:22 AM EDT Faxed lab orders to [facility] [phone]. * Telephone Encounter - Radha Ospina - 12/26/2024 8:35 AM EDT Labs entered. Will need to fax over to [facility] the day before SVR12 labs due. SVR labs due on 01/01. * Telephone Encounter - Radha Ospina - 09/26/2024 12:33 PM EDT TW4 OV attended. SVR12 labs due on 01/01/25. Postponing prior to SVR12 to request labs orders from nursing. * Telephone Encounter - Blessing Cullen - 09/25/2024 10:40 AM EDT Called patient to remind him of TW4 office visit appt tomorrow. No answer, could not leave a voicemail. * Telephone Encounter - Radha Ospina - 08/06/2024 8:42 AM EST RNA 52. DB updated. TW4 OV on 09/26/24. * Telephone Encounter - Radha Ospina - 08/01/2024 10:56 AM EST TW2 labs completed. RNA pending. DB updated. Postponing to capture RNA. * Telephone Encounter - Blessing Cullen - 07/30/2024 10:47 AM EST Called patient to remind patient of labs due tomorrow. [facility] is [facility]. * Telephone Encounter - Radha Ospina - 07/25/2024 9:20 AM EST TW2 labs due on 07/31/24 at [facility]. * Telephone Encounter - Radha Ospina - 07/22/2024 4:02 PM EST HCV Treatment start date 07/17/24. Labs at [facility]. Treatment calendar mailed out on 07/23/24. documented in this encounter Plan of Treatment Upcoming Encounters Date Type Department Care Team (Late st Contact Info) Description 09/25/2025 1:30 PM EDT Ancillary Procedure [facility] Medicine Specialties [address] [place] [address] 09/25/2025 2:40 PM EDT Office Visit [facility] [place] [address], [address] [place] [phone] Delgado Grossman MD [address] [place] [address] documented as of this encounter Visit Diagnoses Not on filedocumented in this encounter Additional Health Concerns Assessment Noted Time A fall risk assessment has been complete d for the patient 06/07/2024 12:58 PM EST A Body Mass Index follow-up plan has been documented for the patient 06/07/2024 1:29 PM EST documented as of this encounter Care Teams Ethernet Network Architect Relationship Specialty Start Date End Date Rebekah Guzman, CHARLEY [address] [place] [phone] PCP - General 08/02/23 Candi Garcia, [place] [address] Stone Hand Family Assistant 07/31/24 08/13/24 documented as of this encounter
--- OUTSIDE RECORDS SUMMARY | 2025-04-27 14:35 | XMS_ITS | Encounter Summary ---
Author Organization [facility] Address [address] [place] [address] Care Team Providers Care Ecdis N Navigation Operator Name Role Phone Rebekah Guzman NEONATAL INTENSIVE CARE UNIT NURSE Primary Care Provider [phone] Reason for Visit * Reason Onset Date Comments CONCERNS 04/17/2025 Encounter Details Date Type Department Care Team (Late st Contact Info) Description 04/17/2025 Telephone [facility] PRIMARY CARE [address] [place] [phone] Rebekah Guzman, NEONATAL INTENSIVE CARE UNIT NURSE [address] [place], [place] [phone] CONCERNS Social History Tobacco Use Types Packs/Day Years [...] encounter Miscellaneous Notes * Telephone Encounter - Kami Thomas MA - 04/17/2025 5:16 PM EDT Refill medicine * Telephone Encounter - Raúl Rodrigez RegSched Rep - 04/17/2025 5:00 PM EDT Caller: Alf Pena Relationship: Self Best call back number: [phone] What is the best time to reach you: ANYTIME Who are you requesting to speak with (clinical staff, provider, specific staff member): CLINICAL STAFF PATIENT IS WANTING TO SPEAK WITH NURSE. documented in this encounter Plan of Treatment Upcoming Encounters Date Type Department Care Team (Late st Contact Info) Description 06/20/2025 4:00 PM EST Office Visit [facility] PRIMARY CARE [address] [place] [phone] Rebekah Guzman APRN [address] [place] [phone] documented as of this encounter Visit Diagnoses Diagnosis Chronic pain syndrome documented in this encounter Care Teams Ecdis N Navigation Operator Relationship Specialty Start Date End Date Rebekah Guzman APRN [address] [place] [phone] PCP - General Family Medicine 06/08/22 documented as of this encounter
--- OUTSIDE RECORDS SUMMARY | 2025-04-27 14:35 | XMS_ITS ---
Author Organization [facility] Address [address] [place] [address] Care Team Providers Care Privacy Specialist Name Role Phone Rebekah Guzman APRN Primary Care Provider Hepatitis C Program Status:Closed (Closed) Start date:07/31/2024 Enrollment date:10/07/2024 Enrollment reason:HCV End date:04/09/2025 Close reason:HCV RNA Negative Continued Care and Services Coordination
--- OUTSIDE RECORDS SUMMARY | 2025-04-27 14:36 | XMS_ITS | Encounter Summary ---
Author Organization [facility] Address [address] [place] [address] Care Team Providers Care Rooming House Inspector Name Role Phone Rebekah Guzman APRN Primary Care Provider Encounter Details Date Type Department Care Team (Late st Contact Info) Description 04/09/2025 Patient Outreach [facility] Medicine Specialties [address] [facility], [address] [place] [phone] Rebekah Pena Social History Tobacco Use Types Packs/Day Years [...] as of this encounter Miscellaneous Notes * Progress Notes - Rebekah Pena - 04/09/2025 5:13 PM EDT HCV RNA - 02/06/2025. Pt. closed out of HCV program on this date. documented in this encounter Plan of Treatment Upcoming Encounters Date Type Department Care Team (Late st Contact Info) Description 09/25/2025 1:30 PM EDT Ancillary Procedure [facility] Medicine [address], [address] [place] [phone] 09/25/2025 2:40 PM EDT Office Visit [facility] [place] [address], [address] [place] [address] Delgado Grossman MD [address] [place] [address] documented as of this encounter Visit Diagnoses Not on filedocumented in this encounter Additional Health Concerns Assessment Noted Time A fall risk assessment has been complete d for the patient 09/26/2024 8:26 AM EDT A Body Mass Index follow-up plan has been documented for the patient 02/06/2025 1:29 PM EDT documented as of this encounter Care Teams Rooming House Inspector Relationship Specialty Start Date End Date Rebekah Guzman APRN [address] [place] [address] PCP - General 08/02/23 documented as of this encounter
--- OUTSIDE RECORDS SUMMARY | 2025-04-27 14:36 | XMS_ITS | Clinical Summary ---
Author Organization [facility] Address [address] [place] [address] Care Team Providers Care Electrical Prospector Name Role Phone Rebekah Guzman APRN Primary Care Provider Allergies No known active allergies Medications lisinopril 40 MG tablet Take 1 tablet (40 mg) by mouth 1 (one) time each day. Active ibuprofen 800 MG tablet Take 1 tablet (800 mg) by mouth 2 (two) times a day. Active gabapentin (Neurontin) 400 MG capsule Take 1 capsule (400 mg) by mouth 2 (two) times a day if needed (chronic pain syndrome secondary to low back pain). 4 Active traMADol (Ultram) 50 MG tablet Take 1 tablet (50 mg) by mouth twice a day. 4 Active sofosbuvir-velp atasvir (Epclusa) 400-100 MG tabletIndicatio ns:Hep C w/o coma, chronic Take 1 tablet by mouth 1 (one) time each day. 28 tablet 2 4 Active FLUoxetine (PROzac) 10 MG capsule Take 1 capsule (10 mg) by mouth daily. Active Active Problems No known active problems Encounters Date Type Department Care Team Description 04/09/2025 Patient Outreach [facility] Medicine Specialties [address] [place] [address] Rebekah Pena 03/21/2025 Telephone [facility] Medicine Specialties [address] [place] [address] Delgado Grossman MD 02/10/2025 Results Follow-Up [facility] [address] [place] [phone] Delgado Grossman MD 02/06/2025 1:15 PM EDT Clinical Support [facility] [address] [place] [address] Chronic hepatitis C without hepatic coma (CMS/HCC) 02/06/2025 Travel from Last 3 Months Immunizations Immunization Administration Dates Next Due Influenza, injectable, MDCK, preservative free, quadrivalent 06/27/2022 Influenza, injectable, quadrivalent 05/10/2023 Influenza, injectable, quadrivalent, preservativ e free 06/27/2022,04/16/2017 Influenza, seasonal, injectable 04/16/2020 Influenza, seasonal, injectable, preservative fr ee 05/09/2024 Pneumococcal 20-mikel Conj Vaccine 11/14/2023 Pneumococcal Polysaccharide PPV23 04/16/2017 TD (adult), 2 Lf tetanus tox oid, preservative free, adsorbed 09/19/1996 Tdap 04/11/2016 Zoster, Recombinant 11/14/2023 Zoster, live 04/16/2017 Social History Tobacco Use Types Packs/Day Years Used Date Smoking Tobacco: Never Passive Smoke Exposure: Past Smokeless Tobacco: Never Tobacco Cessation:Counseling Given: Not Answered Alcohol Use Standard Drinks/Week Comments Not Currently [...] Sign Reading Time Taken Comments Blood Pressure 128/76 09/26/2024 8:26 AM EDT Pulse 60 09/26/2024 8:26 AM EDT Temperature 36.4 C (97.5 F) 12/07/2023 9:59 AM EDT Respiratory Rate - - Oxygen Saturation 95% 12/07/2023 9:59 AM EDT Inhaled Oxygen Concentration - - Weight 91.6 kg (201 lb 15.1 oz) 09/26/2024 8:26 AM EDT Height 167.6 cm (5' 6 ) 09/26/2024 8:26 AM EDT Body Mass Index 32.59 09/26/2024 8:26 AM EDT Plan of Treatment Upcoming Encounters Date Type Department Care Team (Late st Contact Info) Description 09/25/2025 1:30 PM EDT Ancillary Procedure [facility] Medicine Specialties [address] [place] [address] 09/25/2025 2:40 PM EDT Office Visit [facility] [place] [address], [address] [place] [address] Delgado Grossman MD [address] [place] [address] Health Maintenance Due Date Last Done Comments [facility]-/Child/Adol SDOH Screenings 1961 [facility]- SDOH Screenings 1979 [facility]-Adult SDOH Screenings 1979 [facility]-Hepatitis A Vaccines (1 of 2 - Risk 2-dose series) 01/19/1980 CT Colonography 2006 Colonoscopy 2006 FIT-DNA 2006 FIT 2006 FOBT 2006 Sigmoidoscopy 2006 [facility]-Colorectal Cancer Screening 2006 [facility]-RSV Vaccine: 60+ Years or (1 - Risk 60-74 years 1-dose series) 2021 [facility]-Zoster Vaccines (3 of 3) 01/09/2024 11/14/2023, 04/16/2017 [facility]-Influenza Vaccine (#1) 03/17/202505/09, 05/10/2023, 06/27/2022, Additional history exists [facility]-Depression Screening 09/26/2025 09/26/2024 [facility]-DTaP,Tdap,and Td Vaccines (2 - Td or Tdap) 04/11/2026 04/11/2016, 09/19/1996 [facility]-Pneumococcal Vaccine: 50+ Years Completed 11/14/2023, 04/16/2017 [id number] Vaccine Completed 05/09/2024, 07/02/2021, 11/02/2020, Additional history exists [facility]-HIV Screening Completed 06/07/2024, 12/07/2023 [facility]-Obesity Intervention Completed 025, 09/26/2024, 06/07/2024, Additional history exists HPV Vaccines Aged Out No longer eligi ble based on patient's age to complete this topic [facility]-HIB Vaccines Aged Out No longer e ligible based on patient's age to complete this topic [facility]-IPV Vaccines Aged Out No longer e ligible based on patient's age to complete this topic [facility]-Rotavirus Vaccines Aged Out No lo nger eligible based on patient's age to complete this topic Procedures Procedure Name Priority Date/Time Associated Diagnosis Comments HEPATITIS C VIRUS (HCV) QUANTITATIVE PCR Routine 02/06/2025 1:29 PM EDT Chronic hepatitis C without hepatic coma (CMS/HCC) PROTHROMBIN TIME(PT) / INR Routine 02/06/2025 1:29 PM EDT Chronic hepatitis C without hepatic coma (CMS/HCC) COMPREHENSIVE METABOLIC PANEL, PLASMA Routine 02/06/2025 1:29 PM EDT Chronic hepatitis C without hepatic coma (CMS/HCC) CBC WITH AUTO DIFFERENTIAL Routine 02/06/2025 1:29 PM EDT Chronic hepatitis C without hepatic coma (CMS/HCC) HIV 1/2 ANTIBODY/ANTIGEN SCREEN WITH REFLEX TO HIV I/II DIFFERENTIATION Routine 06/07/2024 1:37 PM EST Other cirrhosis of liver (CMS/HCC) from Last 3 Months or Most Recently Relevant to Health Maintenance Results * Hepatitis C Virus (HCV) Quantitative PCR (02/06/2025 1:29 PM EDT) Hepatitis C Virus (HCV) Quantitative Interpretation Not Detected Not Detected. 02/07/2025 11:30 AM EDT [facility] Blood Venous blood specimen / Unknown Venipuncture / Unknown 02/06/2025 1:29 PM EDT 02/06/2025 1:29 PM EDT Narrative [facility] - 02/07/2025 11:30 AM EDT The [employer] M2000 HCV test is a Real Time in vitro nucleic acid amplification test for the quantitation of Hepatitis C Viral (HCV) RNA in human serum in HCV-infected individuals. It is intended for use as an aid in the management of HCV-infected individuals undergoing anti-viral therapy. The dynamic range for this test is log10 = 1.08 to 8.00 and/or 12 to 100,000,000 IU/mL. The limit of detection (LOD) for this assay is 12 IU/mL and the limit of quantitation (LOQ) is 12 IU/mL. This assay is FDA approved for clinical use. Delgado Grossman MD LAB BLOOD ORDERABLES Final Res ult Performing Organization Address City/[facility]/ZIP Co de Phone Number [facility] [address] [place] [address] * Prothrombin Time/INR (02/06/2025 1:29 PM EDT) [facility] Prothrombin Time 13.0 12.0 - 14.3 sec LAB COAGULATION METHOD 02/06/2025 7:01 PM EDT [facility] INR 1.0 0.9 - 1.1 LAB COAGULATION METHOD 02/06/2025 7:01 PM EDT [facility] Blood Venous blood specimen / Unknown Venipuncture / Unknown 02/06/2025 1:29 PM EDT 02/06/2025 1:29 PM EDT Narrative [facility] - 02/06/2025 7:01 PM EDT OPTIMAL INR RANGES FOR PATIENT ON ORAL ANTICOAGULANT THERAPY Prevention of venous thromboembolism INR 2.0 to 3.0 In patients with heart disease: Atrial fibrillation INR 2.0 to 3.0 Valvular heart disease INR 2.0 to 3.0 Tissue heart valves INR 2.0 to 3.0 Mechanical prosthetic valves INR 2.5 to 3.5 Prevention of recurrent AZ INR 2.5 to 3.5 Delgado Grossman MD LAB BLOOD ORDERABLES Final Res ult [facility] [address] [place] [address] * CBC and Differential (02/06/2025 1:29 PM EDT) WBC Count 5.54 3.70 - 10.30 10*3/uL LAB HEMATOLOGY METHOD 02/06/2025 6:51 PM EDT [facility] RBC Count 4.66 4.60 - 6.10 10*6/uL LAB HEMATOLOGY METHOD 02/06/2025 6:51 PM EDT [facility] HGB 14.7 13.7 - 17.5 g/dL LAB HEMATOLOGY METHOD 02/06/2025 6:51 PM EDT [facility] HCT 44.1 40.0 - 51.0 % LAB HEMATOLOGY METHOD 02/06/2025 6:51 PM EDT [facility] Platelet Count 243 155 - 369 10*3/uL LAB HEMATOLOGY METHOD 02/06/2025 6:51 PM EDT [facility] MCV 95 79 - 98 fL LAB HEMATOLOGY METHOD 02/06/2025 6:51 PM EDT [facility] MCH 31.5 26.0 - 32.0 pg LAB HEMATOLOGY METHOD 02/06/2025 6:51 PM EDT [facility] MCHC 33.3 30.7 - 35.5 g/dL LAB HEMATOLOGY METHOD 02/06/2025 6:51 PM EDT [facility] RDW 12.9 11.5 - 14.5 % LAB HEMATOLOGY METHOD 02/06/2025 6:51 PM EDT [facility] MPV 11.2 8.8 - 12.5 fL LAB HEMATOLOGY METHOD 02/06/2025 6:51 PM EDT [facility] nRBC 0.0 <=0.0 per 100 WBCs LAB HEMATOLOGY METHOD 02/06/2025 6:51 PM EDT [facility] Differential Type Automated LAB HEMATOLOGY METHOD 02/06/2025 6:51 PM EDT [facility] Neutrophils % 59 % LAB HEMATOLOGY METHOD 02/06/2025 6:51 PM EDT [facility] Lymphocytes % 24 % LAB HEMATOLOGY METHOD 02/06/2025 6:51 PM EDT [facility] Monocytes % 9 % LAB HEMATOLOGY METHOD 02/06/2025 6:51 PM EDT [facility] Eosinophils % 7 % LAB HEMATOLOGY METHOD 02/06/2025 6:51 PM EDT [facility] Basophils % 1 % LAB HEMATOLOGY METHOD 02/06/2025 6:51 PM EDT [facility] Immature Granulocytes % 0 % LAB HEMATOLOGY METHOD 02/06/2025 6:51 PM EDT [facility] Neutrophils Absolute 3.28 1.60 - 6.10 10*3/uL LAB HEMATOLOGY METHOD 02/06/2025 6:51 PM EDT [facility] Lymphocytes Absolute 1.34 1.20 - 3.90 10*3/uL LAB HEMATOLOGY METHOD 02/06/2025 6:51 PM EDT [facility] Monocytes Absolute 0.51 0.30 - 0.90 10*3/uL LAB HEMATOLOGY METHOD 02/06/2025 6:51 PM EDT [facility] Eosinophils Absolute 0.36 0.00 - 0.50 10*3/uL LAB HEMATOLOGY METHOD 02/06/2025 6:51 PM EDT [facility] Basophils Absolute 0.04 0.00 - 0.10 10*3/uL LAB HEMATOLOGY METHOD 02/06/2025 6:51 PM EDT [facility] Immature Granulocytes Absolute 0.01 0.00 - 0.06 10*3/uL LAB HEMATOLOGY METHOD 02/06/2025 6:51 PM EDT [facility] Blood Venous blood specimen / Unknown Venipuncture / Unknown 02/06/2025 1:29 PM EDT 02/06/2025 1:29 PM EDT Narrative [facility] - 02/06/2025 6:51 PM EDT Therapeutic decision making should be based on absolute values, rather than percentages. us Delgado Grossman MD LAB BLOOD ORDERABLES Final Res ult [facility] [address] [place] [address] * (ABNORMAL) Comprehensive Metabolic Panel, Plasma (02/06/2025 1:29 PM EDT) Glucose, Plasma 63(L) 74 - 99 mg/dL 02/06/2025 7:06 PM EDT [facility] BUN, Plasma 19 8 - 23 mg/dL 02/06/2025 7:06 PM EDT [facility] Creatinine, Plasma 0.80 0.70 - 1.20 mg/dL 02/06/2025 7:06 PM EDT [facility] BUN/Creatinine Ratio 02/06/2025 7:06 PM EDT [facility] Sodium, Plasma 136 136 - 145 mmol/L 02/06/2025 7:06 PM EDT [facility] Potassium, Plasma 5.2(H) 3.6 - 4.9 mmol/L 02/06/2025 7:06 PM EDT [facility] Chloride, Plasma 99 97 - 107 mmol/L 02/06/2025 7:06 PM EDT [facility] CO2, Plasma 26 22 - 29 mmol/L 02/06/2025 7:06 PM EDT [facility] Anion Gap 11 6 - 16 mmol/L 02/06/2025 7:06 PM EDT [facility] Total Calcium, Plasma 10.0 8.9 - 10.2 mg/dL 02/06/2025 7:06 PM EDT [facility] Total Protein 8.3(H) 6.3 - 7.9 g/dL 02/06/2025 7:06 PM EDT [facility] Albumin, Plasma 4.7 3.5 - 5.2 g/dL 02/06/2025 7:06 PM EDT [facility] AST, Plasma 32 10 - 50 U/L 02/06/2025 7:06 PM EDT [facility] ALT, Plasma 23 10 - 50 U/L 02/06/2025 7:06 PM EDT [facility] Alkaline Phosphatase, Plasma 76 40 - 115 U/L 02/06/2025 7:06 PM EDT [facility] Total Bilirubin, Plasma 0.4 0.2 - 1.1 mg/dL 02/06/2025 7:06 PM EDT [facility] eGFRcr 98.8 mL/min/1.7 3m*2 02/06/2025 7:06 PM EDT [facility] Comment:Reported eGFRcr in m L/min/1.73m2 is based the CKD-EPI 2021 equation that does not use a race coefficient. Blood Venous blood specimen / Unknown Venipuncture / Unknown 02/06/2025 1:29 PM EDT 02/06/2025 1:29 PM EDT Delgado Grossman MD LAB BLOOD ORDERABLES Final Res ult Performing Organization Address City/[facility]/ZIP Co de Phone Number [facility] [address] [place] [address] * HIV 1 & 2 Antibody/Antigen Screen (06/07/2024 1:37 PM EST) HIV 1 & 2 Antibody/Antigen Screen Non Reactive Non Reactive 06/07/2024 5:57 PM EST [facility] Comment:Screening for HIV 1 & 2 antibodies, and P24 antigen is NONREACTIVE. No confirmatory testing is required. Blood Venous blood specimen / Unknown Venipuncture / Unknown 06/07/2024 1:37 PM EST 06/07/2024 1:38 PM EST Delgado Grossman MD LAB BLOOD ORDERABLES Final Res ult Performing Organization Address City/[facility] Co de Phone Number [facility] [address] [place] [address] from Last 3 Months or Most Recently Relevant to Health Maintenance Insurance [employer] Care Teams Electrical Prospector Relationship Specialty Start Date End Date Rebekah Guzman APRN [address] [place] [address] PCP - General 08/02/23
--- NOTE | 2025-04-27 14:49 | ECG_ITS ---
APPROVED REPORT Exam: Resting ECG HR:57 bpm ECG Measurements Heart Rate 57 AXES IN 202 P 37 QRSd 95 QRS 60 QT 396 T 61 QTc 390 Conclusion Sinus bradycardia without acute ST or T wave changes concerning for Electronically signed by : Christine Villatoro, 04/28/2025 00:56:57
--- NOTE | 2025-04-27 15:07 | CT_ITS ---
PROCEDURE INFORMATION: Exam: CT Abdomen And Pelvis With Contrast Exam date and time: 04/27/2025 4:44 PM Age: 65 years old Clinical indication: Abdominal pain; Additional info: Abd pain TECHNIQUE: Imaging protocol: Computed tomography of the abdomen and pelvis with contrast. Radiation optimization: All CT scans at this facility use at least one of these dose optimization techniques: automated exposure control; mA and/or kV adjustment per patient size (includes targeted exams where dose is matched to clinical indication); or iterative reconstruction. Contrast material: ISOVUE; Contrast volume: 75 ml; Contrast route: IV; COMPARISON: CT ABDOMEN PELVIS WO CON 07/27/2019 2:53 PM FINDINGS: Liver: Normal. No mass. Gallbladder and biliary ducts: Normal. No calcified stones. No ductal dilation. Pancreas: Normal. No ductal dilation. Spleen: Normal. No splenomegaly. Adrenal glands: Normal. No mass. Kidneys and ureters: Several simple appearing left kidney cysts with the largest measuring 2.3 x 1.5 cm. Right kidney unremarkable. Stomach and bowel: Left upper quadrant small bowel wall thickening. Appendix: No evidence of appendicitis. Intraperitoneal space: Unremarkable. No free air. No significant fluid collection. Vasculature: Atherosclerosis. Lymph nodes: Unremarkable. No enlarged lymph nodes. Urinary bladder: Unremarkable as visualized. Reproductive: Unremarkable as visualized. Bones/joints: Old right posterior 10th and 11th rib fractures. Degenerative changes of the spine. Chronic superior endplate compressions at L1 and L2. L4/5 prosthetic disc. Soft tissues: Right hip arthroplasty, with lateral acetabular screw extending into the overlying gluteal musculature. IMPRESSION: 1. Left upper quadrant small bowel wall thickening, concerning for enteritis. 2. Additional chronic/nonemergent findings as detailed above. COMMENTS: Consistent with the [employer]'s Incidental Findings Committee white paper (J Am Efraín Radiol 2018): Any incidental renal lesion less than 1 cm or classified as too small to characterize, or any incidental cystic renal lesion characterized as simple-appearing, is likely benign. No follow-up imaging is recommended for these lesions per consensus recommendations based on imaging criteria.
--- NOTE | 2025-04-27 15:13 | PC.NURSE ---
pt difficult stick, medic, COMPLEX CARE NURSE, 2 RN's have attempted access thus far. notified and will place USGIV
--- NOTE | 2025-04-27 15:15 | ED_ITS ---
<Statement entered by Annemarie Ng DO - 04/28/25 08:54> I was consulted by the SHENA, and we discussed the complexity of problems being addressed. I approved the treatment plan and management plan of this patient's care in the emergency department, thus performing a substantive portion of medical decision making. Annemarie Ng DO Discharge Plan Disposition Patient Disposition: Home, Self-Care Prescriptions Prescriptions: New ondansetron 4 mg tablet,disintegrating 4 mg PO DAILY 5 Days Qty: 5 0RF No Action gabapentin 400 mg capsule 400 mg PO BID Patient Comments: TAKE 1 CAPSULE BY MOUTH TWICE DAILY NEEDED FOR CHRONIC PAIN SYNDROME SECONDARY TO LOW BACK PAIN amlodipine 5 mg tablet 5 mg PO DAILY lisinopril 40 mg tablet 40 mg PO DAILY Referrals Follow up/Referrals: Provider,Referral, MD [Primary Care Provider, Medical] - See instructions Activity Restrictions/Add. Instructions Additional Instructions/Restrictions: Today you were evaluated in the emergency department for abdominal pain. Your CT shows that you have enteritis, please increase your fluid intake. Take the Zofran as directed. Please follow-up with your primary care provider within 48 hours. Please return to the ED for worsening of condition. Clinical Impressions Clinical Impression: Enteritis Instructions Patient Instructions: DI for Acute Abdominal Pain Print Language Print Language: Faroese Discharge ED Provider: Annemarie Ng General Adult HPI General Chief complaint: Abdominal Pain Stated complaint: stomach pain, blood pressure high Time Seen by Provider: 04/27/25 14:35 Mode of Arrival: Ambulatory Source of Information: Patient Description of Symptoms (Recalled from ER Triage Doc. by RN): pt c/o sharp, 8/10 and constant epigasteric pain x2d. pt reports N/V. He denies urinary issues or diarrhea. pt states his was recently ill with the same symptoms. pt has not medicated for pain or symptoms. History of Present Illness HPI narrative: patient is a 65-year-old male PMHx hypertension and pancreatitis who presents to the ED for complaints of centrally located abdominal pain x 2 days. Patient states he feels nauseated, has difficulty starting his urine stream and has elevated blood pressure despite taking his antihypertensive. He takes lisinopril 40 mg daily. He denies any history of abdominal surgery. Denies alcohol use. States that his pain is constant in nature describes it as sharp. Related Data Home Medications ?Medication ?Instructions ?Recorded ?Confirmed amlodipine 5 mg tablet 5 mg PO DAILY Hypertension 0 03/14/23 04/27/25 gabapentin 400 mg capsule 400 mg PO BID Pain 03/14/23 04/27/25 lisinopril 40 mg tablet 40 mg PO DAILY Hypertension 03/14/23 04/27/25 Previous Rx's ?Medication ?Instructions ?Recorded ondansetron 4 mg disintegrating 4 mg PO DAILY 5 days # 5 tabs 04/27/25 tablet Allergies Allergy/AdvReac Type Severity Reaction Status Date / Time No Known Allergies Allergy Verified 04/27/25 13:55 [facility] Disclaimer: The information contained in this section may have been updated after the patient was seen, as this information can be updated by other users. Medical History (Updated 04/27/25 @ 18:44 by Jolanta Mtz APRN) Abdominal discomfort Back pain with history of spinal surgery HLD (hyperlipidemia) HTN (hypertension) Chronic pain syndrome Alcohol abuse Chronic hepatitis C Surgical History History of hip surgery H/O knee surgery Hx of colonoscopy Family History Other Alzheimer disease Diabetes Nephrolithiasis Social History Smoking Status: Never smoker alcohol intake: former current occupational status: employed Travel in the last 8 weeks?: None household members: spouse Have you lived/traveled outside [place] in past 30 days?: No Contact w/someone who lives/traveled outside [place] past 30 days?: No Exposure to someone with infectious disease in past 14 days?: No Do you have a fever (greater than 100.4 F or 38 C)?: No Have you tested positive for COVID-19?: No Exposed to someone with COVID-19 in past 14 days?: No Do you have a sore throat?: No Do you have a cough?: No Do you have any weakness?: No Do you have any diarrhea?: No Are you experiencing any unusual bleeding?: No Do you have any muscle aches/pain?: No Do you have any abdominal pain?: No Are you experiencing loss of taste or smell?: No Other Medical History Have you received the Flu Vaccine for this season: Yes Have you received the Pneumonia Vaccine: Yes ROS Obtained: Yes Systems reviewed as appropriate & no additional complaints except as documented Physical Exam General General appearance: alert Head Head exam: atraumatic Eye Eye exam: Present PERRL Respiratory Respiratory exam: Present normal lung sounds bilaterally Cardiovascular Cardiovascular exam: Present regular rate Abdominal Exam Abdominal exam: Present soft and tenderness (superior to the umbilicus ) Neurological Exam Neurological exam: Present alert and oriented X3 Skin Skin exam: Present warm Medical Decision Making Medical Records Screening: Per USPSTF and CDC recommendations, given the prevalence of disease in our region, it is our hospital?s policy to screen for HIV and viral Hepatitis for all patients aged 18 and over and those with ongoing risk factors. Tito Inquiry Pt receiving controlled substance: No Vital Signs: 04/27/25 14:22 04/27/25 14:48 04/27/25 15:11 Temperature 98.3 F Temperature Source Oral Pulse Rate 57 L 57 L Pulse Rate [Left] 62 Respiratory Rate 14 11 L 11 L Blood Pressure 191/108 H 174/106 H Blood Pressure [Right Arm] 188/105 H Blood Pressure Mean [Right Arm] 132 Blood Pressure Source Blood Pressure Source [Right Arm] Automatic Cuff Blood Pressure Position Blood Pressure Position [Right Arm] Sitting 02 Sat by Pulse Oximetry 99 98 98 Oxygen Delivery Method Room Air Room Air Room Air 04/27/25 15:30 04/27/25 16:00 04/27/25 16:30 Temperature Temperature Source Pulse Rate 62 56 L 59 L Pulse Rate [Left] Respiratory Rate 17 13 Blood Pressure 180/103 H 177/108 H 178/102 H Blood Pressure [Right Arm] Blood Pressure Mean [Right Arm] Blood Pressure Source Blood Pressure Source [Right Arm] Blood Pressure Position Blood Pressure Position [Right Arm] 02 Sat by Pulse Oximetry 97 97 99 Oxygen Delivery Method Room Air Room Air Room Air 04/27/25 16:52 04/27/25 16:54 04/27/25 17:00 Temperature Temperature Source Pulse Rate 66 61 67 Pulse Rate [Left] Respiratory Rate 12 14 12 Blood Pressure 191/113 H 179/100 H 173/104 H Blood Pressure [Right Arm] Blood Pressure Mean [Right Arm] Blood Pressure Source Blood Pressure Source [Right Arm] Blood Pressure Position Blood Pressure Position [Right Arm] 02 Sat by Pulse Oximetry 98 99 99 Oxygen Delivery Method Room Air Room Air 04/27/25 17:08 04/27/25 17:30 04/27/25 17:31 Temperature Temperature Source Pulse Rate 66 66 66 Pulse Rate [Left] Respiratory Rate 11 L Blood Pressure 172/99 H 162/84 H 162/84 H Blood Pressure [Right Arm] Blood Pressure Mean [Right Arm] Blood Pressure Source Blood Pressure Source [Right Arm] Blood Pressure Position Blood Pressure Position [Right Arm] 02 Sat by Pulse Oximetry 99 98 100 Oxygen Delivery Method Room Air 04/27/25 18:00 04/27/25 18:31 04/27/25 18:52 Temperature 98.1 F Temperature Source Oral Pulse Rate 66 63 65 Pulse Rate [Left] Respiratory Rate 18 Blood Pressure 176/101 H 148/85 H 148/85 H Blood Pressure [Right Arm] Blood Pressure Mean [Right Arm] Blood Pressure Source Automatic Cuff Blood Pressure Source [Right Arm] Blood Pressure Position Supine Blood Pressure Position [Right Arm] 02 Sat by Pulse Oximetry 99 100 Oxygen Delivery Method Room Air Room Air Room Air Lab Data Lab Results 04/27/25 16:15: WBC 7.9, RBC 4.38 L, Hgb 13.7 L, Hct 39.5 L, MCV 90.2, MCH 31.3 H, MCHC 34.7, RDW 12.3, Plt Count 237, MPV 10.6 H, Neut % (Auto) 86.0 H, Lymph % (Auto) 10.5, Wheeler % (Auto) 2.9, Eos % (Auto) 0.0 L, Baso % (Auto) 0.1, Neut # (Auto) 6.8, Lymph # (Auto) 0.8, Wheeler # (Auto) 0.2, Eos # (Auto) 0.0, Baso # (Auto) 0.0, Sodium 138, Potassium 3.6, Chloride 102, Carbon Dioxide 25, Anion Gap 14.6, BUN 13, Creatinine 0.60 L, Estimated Creat Clear 91, Estimated GFR 136, Est GFR ( Amer) 164, Glucose 138 H, Lactate 1.6, Calcium 9.5, Total Bilirubin 0.8, AST 38, ALT 23, Alkaline Phosphatase 87, Troponin I < 0.01, Total Protein 7.7, Albumin 4.4, Globulin 3.3 H, Albumin/Globulin Ratio 1.3, Lipase 98, HCV Ab ROSIE w/Rflx PCR Qn Reactive, HIV Ag/Ab Combo Qual Negative 04/27/25 17:21: Urine Color Yellow, Urine Appearance Clear, Urine pH 8.5, Ur Specific [place] 1.015, Urine Protein Negative, Urine Glucose (UA) Negative, Urine Ketones Trace, Urine Blood Negative, Urine Nitrate Negative, Urine Bilirubin Negative, Urine Urobilinogen 1.0, Ur Leukocyte Esterase Negative, Urine RBC Occasional, Urine WBC Occasional, Ur Squamous Epith Cells None, Urine Bacteria Trace 04/27/25 16:15 04/27/25 16:15 Orders (Tests/Meds): ED MEDICATIONS Discontinued Medications Generic Name Dose Route Start Last Admin Trade Name Freq PRN Reason Stop Dose Admin Hydromorphone HCl 1 mg 04/27/25 18:28 04/27/25 18:32 Hydromorphone 2mg/Ml Syringe IV 04/27/25 18:29 1 mg ONCE ONE Administration Sodium Chloride 1,000 mls @ 999 mls/hr 04/27/25 15:07 04/27/25 17:19 Sod Chlor 0.9% 1000ml Bag IV 04/27/25 16:07 Infused .Q1H1M ONE Infusion Iopamidol 75 ml 04/27/25 16:43 04/27/25 16:44 Iopamidol-370 (76%);100ml Bottle IV 04/27/25 16:44 75 ml ONCE ONE Administration Morphine Sulfate 4 mg 04/27/25 15:07 04/27/25 16:02 Morphine 4mg/Ml Syringe IV 04/27/25 15:08 4 mg ONCE ONE Administration Ondansetron HCl 4 mg 04/27/25 15:07 04/27/25 16:02 Ondansetron 4mg/2ml Vial IV 04/27/25 15:08 4 mg ONCE ONE Administration Sodium Chloride 10 ml 04/27/25 16:43 04/27/25 16:44 Sodium Chloride 0.9% 10ml Syr (Rad Only) IV 05/27/25 16:42 10 ml NEEDED PRN Administration Maintain IV Site ORDERS Category Date Time Status CT abdomen pelvis w con Stat Cat Scan 04/27/25 15:07 Completed CBC w/Auto Diff [Complete Blood Count Auto Diff] Stat Lab 04/27/25 16:15 Completed CMP [Comprehensive Metabolic Panel] Stat Lab 04/27/25 16:15 Completed HCV RNA PCR, Quant Stat Lab 04/27/25 16:15 Received HIV Combo Stat Lab 04/27/25 16:15 Completed Hepatitis C Ab Qual. W/ RFX Stat Lab 04/27/25 16:15 Completed Lactic Acid Stat Lab 04/27/25 16:15 Completed Lipase Stat Lab 04/27/25 16:15 Completed Trop I [Troponin I] Stat Lab 04/27/25 16:15 Completed Urinalysis and Microscopic Stat Lab 04/27/25 17:21 Completed Medical Decision Narrative: In summary, patient is a 65-year-old male PMHx hypertension and pancreatitis who presents to the ED for complaints of centrally located abdominal pain x 2 days. Patient states he feels nauseated, has difficulty starting his urine stream and has elevated blood pressure despite taking his antihypertensive. He takes lisinopril 40 mg daily. He denies any history of abdominal surgery. Denies alcohol use. States that his pain is constant in nature describes it as sharp. Denies fever, chills, headache, visual disturbances, chest pain, shortness of breath. Patient is unsure when his last bowel movement was. He is currently able to tolerate p.o. Differential diagnosis include pancreatitis, ischemic bowel, constipation, infectious process, among others. Upon initial evaluation patient is alert, oriented and cooperative. He is hypertensive. His abdomen is soft however tender superior to the umbilicus. No rebound tenderness or guarding. Discussed with patient we will proceed with labs and CT scan of the abdomen and pelvis. Will symptomatically manage with Zofran and morphine CBC unremarkable for any leukocytosis, stable H&H. CMP unremarkable for any actionable abnormalities. Troponin < 0.01. Lipase 98. Patient requesting additional pain medication. Dilaudid [address] remarkable for left upper quadrant small bowel wall thickening concerning for enteritis. Upon reassessment, patient states his abdominal pain has improved. He is no longer nauseated. Given this, and with a reassuring CT result, I feel the patient is safe to be discharged home at this time. I discussed with him that he will need to follow-up with his PCP within the next 48 hours. I sent a prescription for Zofran to the pharmacy and advised him to eat small bland meals and increase fluid intake. We discussed return precautions to the ED and patient verbalized understanding. He was hemodynamically stable and ambulatory from the ED without difficulty. Critical Care Critical Care Time Critical Care Time: No
[2025-04-27] MEDS: 0.9 % SODIUM CHLORIDE 1000ML 1,000 ML 999 ML IV (16:02)
[2025-04-27] MEDS: MORPHINE 4MG/ML SYRINGE 4 MG IV (16:02)
[2025-04-27] MEDS: ONDANSETRON 4MG/2ML VIAL 4 MG IV (16:02)
--- NOTE | 2025-04-27 16:15 | PC.NURSE ---
lab notified to come stick patient for blood
[2025-04-27 16:21] LABS: Hematocrit 39.5 % (42.0-52.0); Hemoglobin 13.7 g/dL (14.1-18.0); Immature Granulocytes % 0.5 %; Mean Corpuscular HGB Conc 34.7 g/dL (31.8-35.4); Mean Corpuscular Hemoglobin 31.3 pg (27.0-31.2); Mean Corpuscular Volume 90.2 fl (80-94); Nucleated Red Blood Cells % 0 %; Platelet Count 237 K/mm3 (142-424); Red Blood Count 4.38 M/mm3 (4.60-6.20); Red Cell Distribution Width-SD 41.0 fL; White Blood Count 7.9 K/mm3 (4.8-10.8)
[2025-04-27 16:33] LABS: Alanine Aminotransferase 23 U/L (12-78); Albumin Level 4.4 g/dl (3.5-5.0); Albumin/Globulin Ratio 1.3 (1.1-1.8); Alkaline Phosphatase 87 U/L (38-126); Anion Gap 14.6 mEq/L (5-15); Aspartate Amino Transferase 38 U/L (17-59); Bilirubin,Total 0.8 mg/dl (0.2-1.3); Blood Urea Nitrogen 13 mg/dl (9-20); Calcium 9.5 mg/dl (8.4-10.2); Carbon Dioxide 25 mmol/L (22.0-30.0); Chloride 102 mmol/L (98-107); Creatinine Clearance Estimated 91 mL/min (50-200); Creatinine,Serum 0.60 mg/dl (0.66-1.25); Estimated Glomerular Filt Rate 136 ml/min (>60); GFR (African American) 164 ML/MIN (>60); Globulin 3.3 g/dL (1.3-3.2); Glucose 138 mg/dl (74-100); Lipase 98 U/L (23-300); Potassium 3.6 mmoL/L (3.5-5.1); Sodium 138 mmol/L (136-145); Total Protein,Serum 7.7 g/dl (6.3-8.2)
[2025-04-27 16:44] LABS: Troponin I < 0.01 ng/ml (0.00-0.034)
[2025-04-27] MEDS: IOPAMIDOL-370 (76%);100ML BOTTLE 75 ML IV (16:44)
[2025-04-27] MEDS: SODIUM CHLORIDE 0.9% 10ML SYR (RAD ONLY) 10 ML IV (16:44)
[2025-04-27 17:27] LABS: Bilirubin,Urine Negative (Negative); Color,Urine YELLOW (Yellow); Glucose,Urine (UA) Negative (Negative); Ketones,Urine TRACE (Negative); Leukocyte Esterase,Urine Negative (Negative); Microscopic, Urine URINE MICROSCOPIC (MICROSCOPIC); PH,Urine 8.5 (5.0-8.5); Protein,Urine Negative (Negative); Specific Gravity, Urine 1.015 (1.005-1.030); Urobilinogen,Urine 1.0 EU/dl (0.2)
[2025-04-27 17:32] LABS: Bacteria,Urine Trace /lpf; RBC,Urine Occasional #/hpf (0-3); WBC,Urine Occasional #/hpf (0-3)
--- NOTE | 2025-04-27 18:00 | PC.NURSE ---
sylvester notified that scans have stiill not been read and are approximatley taking about 2 hours to to read
[2025-04-27 18:08] LABS: Hepatitis C Ab Qual. W/ RFX REACTIVE (Negative)
[2025-04-27] MEDS: HYDROMORPHONE 2MG/ML SYRINGE 1 MG IV (18:32)
== END 2025-04-27 18:53 | disposition home or self-care (01) ==
PROVIDERS: Nurse Practitioner; Emergency Provider Student in an Organized Health Care Education/Training Program
DX: R10.13 Epigastric pain (principal); K52.9 Noninfective gastroenteritis and colitis, unspecified; R11.0 Nausea; R00.1 Bradycardia, unspecified; I10 Essential (primary) hypertension; E78.5 Hyperlipidemia, unspecified
CPT/HCPCS: 36415; 74177; 80053; 81001; 83605; 83690; 84484; 85025; 86803; 87389; 87522; 93005; 96361; 96374; 96375; 99285; J1171; J2270; J2405; J7030; Q9967